=== PATIENT | male | born 1995 | race African-American/Black ===

== ENCOUNTER 2021-03-07 09:28 | Emergency (ER) | payer OTHER ==
[~2021-03-07] VITALS: Ht 190.5 cm; Wt 98.2 kg
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
[2021-03-07] MEDS ORDERED: CYCL-707 PO (13:13)
[2021-03-07] MEDS ORDERED: IBUP-1022 PO (13:13)
[2021-03-07 13:26] VITALS: BP 119/75
== END 2021-03-07 13:28 | disposition home or self-care (01) ==
LOC: M ED 09:28
DX: S16.1XXA Strain of muscle, fascia and tendon at neck level, initial encounter (principal); V48.5XXA Car driver injured in noncollision transport accident in traffic accident, initial encounter; Y92.9 Unspecified place or not applicable; Y93.9 Activity, unspecified; Y99.9 Unspecified external cause status; F17.200 Nicotine dependence, unspecified, uncomplicated

== ENCOUNTER → 2021-06-01 | Outpatient (CLI) | payer SELFPAY ==
[~2021-06-01] MED LIST: CYCL-707 PO; IBUP-1022 PO
== END ==
LOC: M LABSMTC 10:18
PROVIDERS: ATTEND Pediatrics
DX: Z20.828 Contact with and (suspected) exposure to other viral communicable diseases (principal); Z11.52 Encounter for screening for COVID-19
CPT/HCPCS: C9803; U0003

== ENCOUNTER → 2022-01-26 | Outpatient (CLI) | payer OTHER ==
[2022-01-26 15:25] LABS: BASO # 0.1 10^3/uL (0.0-0.2); BASO % 1.2 % (0.0-1.0); EOS # 0.6 10^3/uL (0.0-0.5); HEMATOCRIT 46.7 % (42.0-52.0); HEMOGLOBIN 15.2 g/dl (13.5-17.5); LYMPH # 2.5 10^3/uL (1.5-5.0); LYMPH % 41.7 % (24.0-44.0); MEAN CORPUSCULAR HEMOGLOBIN 29.8 pg (27.0-33.0); MEAN CORPUSCULAR HGB CONC 32.5 g/dl (32.0-36.5); MEAN CORPUSCULAR VOLUME 91.6 fl (80.0-96.0); MONO # 0.5 10^3/uL (0.0-0.8); MONO % 8.5 % (2.0-8.0); NEUTROPHILS # 2.3 10^3/uL (1.5-8.5); NEUTROPHILS % 38.4 % (36.0-66.0); PLATELET COUNT, AUTOMATED 310 10^3/uL (150-450)
[2022-01-26 15:50] LABS: ALBUMIN 3.9 GM/DL (3.2-5.2); ALT/SGPT 23 U/L (12-78); BILIRUBIN,TOTAL 0.4 MG/DL (0.2-1.0); BLOOD UREA NITROGEN 15 MG/DL (7-18); CALCIUM LEVEL 9.6 MG/DL (8.5-10.1); CARBON DIOXIDE LEVEL 32 MEQ/L (21-32); CHLORIDE LEVEL 108 MEQ/L (98-107); CREATININE FOR GFR 1.29 MG/DL (0.70-1.30); GLOMERULAR FILTRATION RATE > 60.0 (>60); GLUCOSE, FASTING 64 MG/DL (70-100); POTASSIUM SERUM 4.9 MEQ/L (3.5-5.1); SODIUM LEVEL 141 MEQ/L (136-145); TOTAL PROTEIN 7.6 GM/DL (6.4-8.2)
[2022-01-26 16:00] LABS: HEPATITIS B SURFACE ANTIBODY POSITIVE (POSITIVE)
[2022-01-26 16:39] LABS: HEP C VIRUS AB INDEX SOURCE PT 0.1 INDEX (0.0-0.8); HEPATITIS B CORE ANTIBODY IGM NEGATIVE (NEGATIVE)
[2022-01-26 16:40] LABS: HIV 1&2 SCREEN CENTAUR NEGATIVE (NEGATIVE)
== END ==
LOC: M PLALAB 12:26
PROVIDERS: ATTEND Internal Medicine Hematology
DX: Z13.9 Encounter for screening, unspecified (principal)

== ENCOUNTER → 2022-02-13 | Outpatient (CLI) | payer OTHER | LOC: M PLALAB 13:36 | PROVIDERS: ATTEND Internal Medicine Hematology | DX: M54.50 Low back pain, unspecified (principal) ==

== ENCOUNTER → 2023-07-17 | Outpatient (REF) | payer OTHER ==
[2023-07-17 20:34] LABS: THYROID STIMULATING HORMONE 0.983 uIU/ML (0.55-4.78)
[2023-07-17 20:41] LABS: ALBUMIN 4.2 G/DL (3.2-5.2); ALKALINE PHOSPHATASE 82 U/L (46-116); ALT/SGPT 22 U/L (7.0-40); AST/SGOT 27 U/L (<34); BILIRUBIN,TOTAL 0.7 MG/DL (0.3-1.2); BLOOD UREA NITROGEN 15 MG/DL (9-23); CARBON DIOXIDE LEVEL 29 MMOL/L (20-31); CHLORIDE LEVEL 105 MMOL/L (98-107); CHOLESTEROL LEVEL 276 MG/DL (<200); CHOLESTEROL RISK RATIO 5.91 (<5); CREATININE FOR GFR 1.11 MG/DL (0.70-1.30); GLOMERULAR FILTRATION RATE > 60.0 (>60); GLUCOSE, FASTING 73 MG/DL (60-100); HDL CHOLESTEROL 46.7 MG/DL (>40); LDL CHOLESTEROL 211.1 MG/DL (<100); NON-HDL-C 229.3 MG/DL; POTASSIUM SERUM 5.1 MMOL/L (3.5-5.1); SODIUM LEVEL 142 MMOL/L (136-145); TESTOSTERONE 686 NG/DL (241-827); TOTAL PROTEIN 7.8 G/DL (5.7-8.2); TRIGLYCERIDES LEVEL 91 MG/DL (<150)
[2023-07-17 21:01] LABS: HIV 1&2 SCREEN NEGATIVE (NEGATIVE)
[2023-07-17 21:07] LABS: HEPATITIS C VIRUS ABY INDEX 0.05 INDEX (<0.8)
[2023-07-17 21:08] LABS: HEPATITIS B CORE ANTIBODY IGM NEGATIVE (NEGATIVE)
[2023-07-17 21:09] LABS: HEPATITIS B SURFACE ANTIBODY POSITIVE (POSITIVE)
== END ==
LOC: M PLALAB 17:39
PROVIDERS: ATTEND Internal Medicine Hematology
DX: N52.8 Other male erectile dysfunction (principal)

== ENCOUNTER → 2023-08-28 | Outpatient (REF) | payer OTHER | LOC: M SFHCPLAZ 16:57 | PROVIDERS: ATTEND Internal Medicine Hematology | DX: K21.9 Gastro-esophageal reflux disease without esophagitis (principal) ==

== ENCOUNTER 2023-12-01 01:22 | Emergency (ER) | payer OTHER ==
[~2023-12-01] VITALS: Ht 193 cm; Wt 90.9 kg
[2023-12-01] MEDS ORDERED: TADA10TA (01:42)
[2023-12-01] MEDS ORDERED: ATOR40TA75 (01:42)
[2023-12-01] MEDS ORDERED: SENN-83 (01:42)
[2023-12-01] MEDS ORDERED: NOXI1TAB PO (01:42)
[2023-12-01] MEDS ORDERED: IBUP80TA PO (05:37)
[2023-12-01] MEDS ORDERED: CYCL5TAB PO (05:37)
[2023-12-01 05:45] VITALS: BP 117/72; TEMP 98.2; O2SAT 97
[2023-12-01] MEDS: KETOROLAC 60MG 2ML VIAL IM ONE (05:46)
== END 2023-12-01 05:55 | disposition home or self-care (01) ==
LOC: M ED 01:22
DX: M54.2 Cervicalgia (principal); F17.200 Nicotine dependence, unspecified, uncomplicated; F10.10 Alcohol abuse, uncomplicated; V49.49XA Driver injured in collision with other motor vehicles in traffic accident, initial encounter; Z79.02 Long term (current) use of antithrombotics/antiplatelets; Z79.899 Other long term (current) drug therapy; Z79.52 Long term (current) use of systemic steroids; Z79.891 Long term (current) use of opiate analgesic
CPT/HCPCS: 70450; 72125; 73564; 73630; 96372; 99284; J1885

== ENCOUNTER → 2023-12-12 | Outpatient (CLI) | payer OTHER ==
[~2023-12-12] MED LIST changes: +ATOR40TA75; +CYCL5TAB PO; +IBUP80TA PO; +NOXI1TAB PO; +SENN-83; +TADA10TA
[2023-12-12 18:09] LABS: BASO # 0.1 10^3/uL (0.0-0.2); BASO % 0.9 % (0.0-1.0); EOS # 0.7 10^3/uL (0.0-0.5); EOS % 7.4 % (0.0-3.0); HEMATOCRIT 43.8 % (42.0-52.0); HEMOGLOBIN 14.9 g/dl (13.5-17.5); LYMPH # 3.5 10^3/uL (1.5-5.0); LYMPH % 39.9 % (24.0-44.0); MEAN CORPUSCULAR HEMOGLOBIN 30.6 pg (27.0-33.0); MEAN CORPUSCULAR VOLUME 89.9 fl (80.0-96.0); MONO # 0.7 10^3/uL (0.0-0.8); MONO % 8.2 % (2.0-8.0); NEUTROPHILS # 3.8 10^3/uL (1.5-8.5); NEUTROPHILS % 43.4 % (36.0-66.0); PLATELET COUNT, AUTOMATED 292 10^3/uL (150-450); RED BLOOD COUNT 4.87 10^6/uL (4.30-6.10); WHITE BLOOD COUNT 8.8 10^3/uL (4.0-10.0)
[2023-12-12 18:35] LABS: ALBUMIN 4.1 G/DL (3.2-5.2); ALKALINE PHOSPHATASE 90 U/L (46-116); ALT/SGPT 36 U/L (7.0-40); AST/SGOT 35 U/L (<34); BILIRUBIN,TOTAL 0.4 MG/DL (0.3-1.2); BLOOD UREA NITROGEN 14 MG/DL (9-23); CALCIUM LEVEL 9.8 MG/DL (8.5-10.1); CARBON DIOXIDE LEVEL 31 MMOL/L (20-31); CHLORIDE LEVEL 103 MMOL/L (98-107); CHOLESTEROL LEVEL 142 MG/DL (<200); CREATININE FOR GFR 1.21 MG/DL (0.70-1.30); GLOMERULAR FILTRATION RATE > 60.0 (>60); GLUCOSE, FASTING 78 MG/DL (60-100); HDL CHOLESTEROL 34.6 MG/DL (>40); LDL CHOLESTEROL 69.2 MG/DL (<100); NON-HDL-C 107.4 MG/DL; POTASSIUM SERUM 4.3 MMOL/L (3.5-5.1); SODIUM LEVEL 138 MMOL/L (136-145); TOTAL PROTEIN 7.2 G/DL (5.7-8.2); TRIGLYCERIDES LEVEL 191 MG/DL (<150)
== END ==
LOC: M LAB 16:24
PROVIDERS: ATTEND Internal Medicine Hematology
DX: E78.5 Hyperlipidemia, unspecified (principal)

== ENCOUNTER 2024-05-04 16:14 | Emergency (ER) | payer OTHER ==
[~2024-05-04] VITALS: Ht 193 cm; Wt 113.8 kg
[~2024-05-04 16:14] MED LIST changes: +SENN-187; -SENN-83
[2024-05-04 16:15] VITALS: BP 144/66; TEMP 97.5; O2SAT 100
[2024-05-04] MEDS ORDERED: ACET-683 PO (16:26)
[2024-05-04] MEDS: diazePAM 5MG TABLET PO ONE (19:02)
[2024-05-04] MEDS: KETOROLAC 30 MG/ML 1ML VIAL IM ONE (19:03)
[2024-05-04] MEDS ORDERED: NAPR-837 PO (20:10)
[2024-05-04] MEDS ORDERED: METH-1164 PO (20:10)
== END 2024-05-04 21:05 | disposition home or self-care (01) ==
LOC: M ED 16:14
DX: M62.838 Other muscle spasm (principal); F17.200 Nicotine dependence, unspecified, uncomplicated; Z79.02 Long term (current) use of antithrombotics/antiplatelets; Z79.899 Other long term (current) drug therapy
CPT/HCPCS: 96372; 99282; J1885

== ENCOUNTER → 2024-06-04 | Outpatient (CLI) | payer OTHER ==
[~2024-06-04] MED LIST changes: +ACET-683 PO; +METH-1164 PO; +NAPR-837 PO
[2024-06-04 19:38] LABS: HIV 1&2 SCREEN NEGATIVE (NEGATIVE)
[2024-06-04 19:51] LABS: Trichomonas vaginalis (AMP) NOT DETECTED (NEGATIVE)
[2024-06-04 22:25] LABS: GC DNA AMPLIFICATION NEGATIVE (NEGATIVE)
== END ==
LOC: M PLALAB 16:45
PROVIDERS: ATTEND Internal Medicine Hematology
DX: Z11.3 Encounter for screening for infections with a predominantly sexual mode of transmission (principal)

== ENCOUNTER 2024-06-12 14:55 | Outpatient (RCR) | payer OTHER | END 2024-06-19 | LOC: M PT 14:55 | PROVIDERS: ATTEND Internal Medicine Hematology | DX: M25.561 Pain in right knee (principal) ==

== ENCOUNTER → 2024-06-19 | Outpatient (CLI) | payer OTHER | LOC: M SOG 15:22 | PROVIDERS: ATTEND Orthopaedic Surgery | DX: M54.2 Cervicalgia (principal) ==

== ENCOUNTER → 2024-06-19 | Outpatient (CLI) | payer OTHER | LOC: M SOG 08:51 | PROVIDERS: ATTEND Orthopaedic Surgery | DX: M54.2 Cervicalgia (principal) ==

== ENCOUNTER 2024-07-11 15:06 | Outpatient (RCR) | payer OTHER ==
[~2024-07-11 15:06] MED LIST changes: -CYCL5TAB PO; +CYCL5TAB4 PO
== END 2024-07-19 ==
LOC: M PT 15:06
PROVIDERS: ATTEND Orthopaedic Surgery
DX: M25.561 Pain in right knee (principal)

== ENCOUNTER → 2024-08-19 | Outpatient (CLI) | payer OTHER | LOC: M RAD 15:31 | PROVIDERS: ATTEND Orthopaedic Surgery | DX: M54.6 Pain in thoracic spine (principal); M50.222 Other cervical disc displacement at C5-C6 level ==

== ENCOUNTER 2024-10-02 07:47 | Outpatient (RCR) | payer OTHER | END 2024-10-17 | LOC: M PT 07:47 | PROVIDERS: ATTEND Orthopaedic Surgery | DX: M54.6 Pain in thoracic spine (principal); M54.2 Cervicalgia ==

== ENCOUNTER → 2024-12-16 | Outpatient (CLI) | payer BC ==
[2024-12-16 17:42] LABS: BASO # 0.1 10^3/uL (0.0-0.2); EOS # 0.7 10^3/uL (0.0-0.5); EOS % 7.5 % (0.0-3.0); HEMATOCRIT 41.6 % (42.0-52.0); LYMPH % 44.7 % (24.0-44.0); MEAN CORPUSCULAR HEMOGLOBIN 30.1 pg (27.0-33.0); MEAN CORPUSCULAR HGB CONC 33.7 g/dl (32.0-36.5); MEAN CORPUSCULAR VOLUME 89.5 fl (80.0-96.0); MONO # 0.8 10^3/uL (0.0-0.8); MONO % 8.5 % (2.0-8.0); NEUTROPHILS # 3.4 10^3/uL (1.5-8.5); PLATELET COUNT, AUTOMATED 321 10^3/uL (150-450); RED BLOOD COUNT 4.65 10^6/uL (4.30-6.10); WHITE BLOOD COUNT 8.8 10^3/uL (4.0-10.0)
[2024-12-16 17:50] LABS: HEMOGLOBIN A1c 5.1 % (4.0-6.0)
[2024-12-16 18:15] LABS: ALBUMIN 3.8 G/DL (3.2-5.2); ALKALINE PHOSPHATASE 74 U/L (40-129); ALT/SGPT 33 U/L (7.0-40); AST/SGOT 35 U/L (<34); BILIRUBIN,TOTAL 0.3 MG/DL (0.3-1.2); BLOOD UREA NITROGEN 16 MG/DL (9-23); CALCIUM LEVEL 9.6 MG/DL (8.5-10.1); CARBON DIOXIDE LEVEL 28 MMOL/L (20-31); CHLORIDE LEVEL 105 MMOL/L (98-107); CHOLESTEROL LEVEL 239 MG/DL (<200); CHOLESTEROL RISK RATIO 5.09 (<5); CREATININE FOR GFR 1.08 MG/DL (0.70-1.30); FREE T4 1.16 NG/DL (0.89-1.76); GLOMERULAR FILTRATION RATE > 90.0 (>60); GLUCOSE, FASTING 86 MG/DL (60-100); HDL CHOLESTEROL 46.9 MG/DL (>40); LDL CHOLESTEROL 159.9 MG/DL (<100); NON-HDL-C 192.1 MG/DL; POTASSIUM SERUM 4.2 MMOL/L (3.5-5.1); SODIUM LEVEL 142 MMOL/L (136-145); TOTAL PROTEIN 7.1 G/DL (5.7-8.2); TRIGLYCERIDES LEVEL 161 MG/DL (<150)
[2024-12-16 18:16] LABS: THYROID STIMULATING HORMONE 0.805 uIU/ML (0.55-4.78)
[2024-12-16 18:47] LABS: HIV 1&2 SCREEN NEGATIVE (NEGATIVE)
[2024-12-16 18:55] LABS: HEPATITIS C VIRUS ABY INDEX 0.06 INDEX (<0.8)
[2024-12-16 19:16] LABS: GC DNA AMPLIFICATION NEGATIVE (NEGATIVE)
== END ==
LOC: M PLALAB 16:45
PROVIDERS: ATTEND Student in an Organized Health Care Education/Training Program
DX: Z20.2 Contact with and (suspected) exposure to infections with a predominantly sexual mode of transmission (principal); Z76.89 Persons encountering health services in other specified circumstances; Z13.29 Encounter for screening for other suspected endocrine disorder; Z13.1 Encounter for screening for diabetes mellitus; Z13.220 Encounter for screening for lipoid disorders

== ENCOUNTER → 2025-07-22 | Outpatient (REF) | payer SELFPAY ==
[~2025-07-22] MED LIST changes: -IBUP-1022 PO; +IBUP600T42 PO
== END ==
LOC: M SFHCPLAZ 09:59
PROVIDERS: ATTEND Family Medicine
DX: Z53.9 Procedure and treatment not carried out, unspecified reason (principal)